=== PATIENT | male | born 1960 | race Caucasian/White ===

== ENCOUNTER 2016-10-08 08:09 | Day surgery (SDC) | payer OTHER ==
[2016-10-07 14:15] VITALS: BMI 30.2
[2016-10-08 10:01] VITALS: TEMP 97.4
[2016-10-08 12:38] VITALS: BP 110/62; PULSE 75
== END 2016-10-08 11:15 | disposition home or self-care (01) ==
LOC: JASU-ENDO 08:09
PROVIDERS: ATTEND Internal Medicine Gastroenterology
PROC: 0DJD8ZZ Inspection of Lower Intestinal Tract, Via Natural or Artificial Opening Endoscopic (ICD-10-PCS; principal; 2016-10-08 09:00)
DX: Z12.11 Encounter for screening for malignant neoplasm of colon (principal)